=== PATIENT | female | born 1945 | race African-American/Black ===

== ENCOUNTER → 2018-04-08 | Outpatient (CLI) | payer OTHER ==
[~2018-04-08] VITALS: Ht 160 cm; Wt 82.1 kg
[~2018-04-08] MED LIST: ACCUNEB SO1.25 MG/1; AMOXICILLIN 50500 MG PO; ARTIFICIAL TEA1 EACH OPHTHALMIC; BENADRYL25 MG; CLARITIN10 MG PO; CRESTOR10 MG PO; DIPHENHIST50 MG PO; HYDROCORTISO28.35 G1; HYDROXYZINE HCL25 M1 PO; HYDROXYZINE HCL25 M2 PO; LANTUS100 UNIT/M SUBQ; LISINOPRIL20 MG PO; MEDROLDOSEPACK PO; METFORMIN HCL500 MG PO; NEURONTIN 300300 M1 PO; NORCO 5-325 TA1 EACH PO; PREDNISONE 10 M10 MG PO; PROAIR HFA8.5 GM INH; TRAMADOL-ACETA1 EACH; VISTARIL 25 MG25 M1 PO
--- NOTE | ~2018-04-08 | P ---
[facility] [place] [address] PROCEDURE REPORT Name: JONATAN DE LEON DIANNA Room #: REG VOLODYMYR Lopez.#: [id number] Admission: 04/08/18 Attend Phys: Cristo Pack MD Discharge: Date of : 49 Report #: [id number] THIS REPORT FOR: //name// CC: Cristo SINHA DATE OF SERVICE: 04/08/2018 BRIEF HISTORY: The patient is a 72-year-old woman for her first average risk screening colonoscopy. PREOPERATIVE DIAGNOSIS: Average risk screening colonoscopy. POSTOPERATIVE DIAGNOSES: 1. Multiple colon polyps. 2. Moderate sigmoid diverticulosis coli. 3. Internal hemorrhoids. MEDICATIONS: Deep sedation with propofol per anesthesia. SPECIMEN: 1. Polyp, distal transverse colon. 2. Polyp, mid ascending colon. 3. Polyp at 25 cm. ESTIMATED BLOOD LOSS: 3 mL. PROCEDURE: Colonoscopy to cecum and terminal ileum with snare polypectomy and biopsy. FINDINGS: Prior to propofol sedation, procedure of colonoscopy discussed with the patient as well as potential risks and its complications. She indicates she understands and desires to proceed. DESCRIPTION OF PROCEDURE: With the patient in left lateral decubitus position, digital examination was completed which revealed no abnormalities. Subsequently, AppSame video colonoscope was introduced in the rectum, advanced under direct vision to the cecum. The scope was advanced in the cecum. I could see the edge of the ileocecal valve, but unfortunately due to retained liquidy stool material in the cecum, I could not see the appendiceal orifice. As a matter of fact, much of the view of the cecum was obscured by liquidy stool. Unfortunately, there was too much particulate matter and this resulted in repeated clogging of the suction channel of the scope. We could not remove this material. At that point, the scope was slowly withdrawn and careful circumferential views were obtained. There were limitations of prep, mostly in [facility] [address] [place] [address] PROCEDURE REPORT Name: JONATAN DE LEON DIANNA Room #: REG Faustina Lopez.#: [id number] Admission: 04/08/18 Attend Phys: Cristo Pack MD Discharge: Date of : 49 Report #: [id number] the proximal colon, but there were a couple of smaller areas. There are multiple areas of liquidy stools throughout the colon. We could remove much of this, but not all of it could be removed because of particulate material that continued to clog the scope and required irrigation of the channel of the scope. In the mid ascending colon, a flat polyp was seen, it was about 4 x 5 mm, removed by cold snare polypectomy. The scope was further withdrawn and a diminutive polyp was found in the distal transverse colon removed with biopsy forceps. As we withdrew the scope further, she was noted to have moderate to severe sigmoid diverticular disease without endoscopic evidence of diverticulitis. In the mid sigmoid at about 25 cm, a 1.5 cm polyp on a stalk was seen and removed by hot snare polypectomy. There was good hemostasis. There was no bleeding with the polypectomy. Scope was further withdrawn and no additional lesions were seen until the rectum was reached. Examination of the rectum revealed normal mucosa. However, on retroflexion, hemorrhoids were seen. Scope was withdrawn. The patient tolerated procedure well. CONDITION OF THE PATIENT UPON DISCHARGE: Following procedure, the patient drowsy, arousable, conversant and will be discharged home when fully ambulatory. INSTRUCTIONS TO THE PATIENT AND FAMILY AT THE TIME OF DISCHARGE: The patient had what appeared to be an advanced adenoma in the sigmoid colon, a 15 mm polyp was seen and removed by hot snare polypectomy. We will follow up on the pathology. However, due to the significant limitation of the prep, smaller flat lesions could easily have been missed. Therefore, I suggest return in 6 months for a repeat colonoscopy. Would suggest 2-day prep at that time. This is the patient's first colonoscopy. Withdrawal time from the cecum was 20 minutes and 6 seconds. <ELECTRONICALLY SIGNED> By: Cristo Pack MD 04/09/18 1605 0937 17 Cristo Pack MD /nt
== END | disposition home or self-care (01) ==
LOC: GI 06:56
DX: Z12.11 Encounter for screening for malignant neoplasm of colon (principal); D12.2 Benign neoplasm of ascending colon; D12.3 Benign neoplasm of transverse colon; D12.5 Benign neoplasm of sigmoid colon; K64.8 Other hemorrhoids; K57.30 Diverticulosis of large intestine without perforation or abscess without bleeding; I10 Essential (primary) hypertension; E11.9 Type 2 diabetes mellitus without complications; E78.5 Hyperlipidemia, unspecified; J45.909 Unspecified asthma, uncomplicated; F17.210 Nicotine dependence, cigarettes, uncomplicated; Z90.710 Acquired absence of both cervix and uterus; Z90.49 Acquired absence of other specified parts of digestive tract; Z79.4 Long term (current) use of insulin; Z98.890 Other specified postprocedural states; Z88.8 Allergy status to other drugs, medicaments and biological substances; Z79.899 Other long term (current) drug therapy
CPT/HCPCS: 62110; 62900

== ENCOUNTER → 2018-10-10 | Outpatient (CLI) | payer OTHER ==
[~2018-10-10] VITALS: Ht 157.5 cm; Wt 82.6 kg
[~2018-10-10] MED LIST changes: +PRINIVIL40 MG PO
--- NOTE | ~2018-10-10 | PATH ---
[facility] [address] [place] [address] PATHOLOGY RPT PROCEDURE Name: SADIA DE LEON DIANNA Room #: REG VOLODYMYR Lopez.#: [id number] Admission: 10/10/18 Date of : 49 Discharge: Report #: [id number] Path Case #: [id number] [facility] Accession Number: [id number] . 01 Material submitted: . POLYP AT CECUM . 01 Clinical history: . Pre-OP DX: Hx polyps Post-OP DX: Colon polyp . 02 Diagnosis: Polyp, cecum, endoscopic biopsy: - Minute tubular adenoma without high-grade dysplasia. - Lymphoid aggregate as well as hyperplastic changes. (IUV:liquor inspector; 10/11/2018) MBR/10/11/2018 . 02 Electronically signed: . Samra Jackson MD, Pathologist NPI- [id number] . 01 Gross description: . Received in formalin labeled "Donora, Sadia, polyp at cecum," is a single segment of suárez soft tissue measuring 0.4 cm in maximum dimension. The specimen is entirely submitted in cassette A1. (TSD; 10/10/2018) TOB/TOB . 02 Pathologist provided ICD-10: D12.0 . 02 CPT . 069459 Specimen Comment: A courtesy copy of this report has been sent to Specimen Comment: [phone], . Specimen Comment: Report sent to / DR CUELLO Performed at: [address], [place] [id number] MD Lucas So MD Phone: [phone] Performed at: [address] [id number] MD Samra Jackson MD Phone: [phone]
--- NOTE | ~2018-10-10 | P ---
[facility] [place] [address] PROCEDURE REPORT Name: JONATAN DE LEON DIANNA Room #: REG VOLODYMYR Lopez.#: [id number] Admission: 10/10/18 Attend Phys: Cristo Pack MD Discharge: Date of : 47 Report #: [id number] THIS REPORT FOR: //name// CC: Cristo SINHA OUTPATIENT COLONOSCOPY REPORT BRIEF HISTORY: The patient is a 73-year-old woman who has had recent rectal bleeding. She also has a history of colon polyps and a recently removed advanced adenoma from the sigmoid colon. PREOPERATIVE DIAGNOSIS: Rectal bleeding. POSTOPERATIVE DIAGNOSES: 1. Diminutive cecal polyp. 2. Moderate internal hemorrhoids. 3. Moderate sigmoid diverticulosis coli. MEDICATIONS: Deep sedation with propofol per Anesthesia. SPECIMEN: Cecal polyp. ESTIMATED BLOOD LOSS: 3 mL. PROCEDURE: Colonoscopy to cecum and terminal ileum with biopsy. FINDINGS: It is noted that on her last colonoscopy, prep was poor. DESCRIPTION OF PROCEDURE: With the patient in left lateral decubitus position, digital examination was completed, which revealed no abnormalities. Subsequently, the Olympus video colonoscope was introduced into the rectum and advanced under direct vision to the cecum. There was some thick liquidy material scattered about the colon. Fortunately, it was not very adherent and it washed away relatively easily. With extensive washing and irrigation, overall a satisfactory prep was obtained. The scope was advanced into the cecum and ultimately into the terminal ileum, which was inspected and noted to be unremarkable. At that point, the scope was slowly withdrawn and careful circumferential views were obtained. Within the cecum, a diminutive polyp was seen and removed by biopsy. The scope was further withdrawn and after extensive irrigation, the mucosa was within normal limits, normal vascular pattern, normal light reflex. No additional neoplastic or inflammatory lesions were seen. The mucosa throughout the remainder of the colon was normal. In the sigmoid colon, there was a moderately severe sigmoid diverticular disease without endoscopic evidence of diverticulitis. The scope was withdrawn from the rectum. No abnormalities were seen. However, on retroflexion, hemorrhoids were seen, which [facility] [address] [place] [address] PROCEDURE REPORT Name: ANATJONATAN ANN DIANNA Room #: REG VOLODYMYR Lopez.#: [id number] Admission: 10/10/18 Attend Phys: Cristo Pack MD Discharge: Date of : 49 Report #: [id number] is likely the source of her bleeding. The scope was withdrawn. The patient tolerated the procedure well. CONDITION OF THE PATIENT UPON DISCHARGE: Following procedure, the patient was drowsy and arousable. She will be discharged home when fully ambulatory. INSTRUCTIONS TO THE PATIENT AND FAMILY AT THE TIME OF DISCHARGE: Bleeding is likely result of hemorrhoids. She needs hydrocortisone suppositories as needed. Suggest high fiber diet. If she has problems with constipation, MiraLax may be helpful. One small polyp identified today. However, in view of the fact that she did have an advanced adenoma very recently, suggest a followup colon exam in 3 years. <ELECTRONICALLY SIGNED> By: Cristo Pack MD 10/12/18 1553 1146 1718 Cristo Pack MD /nt
== END | disposition home or self-care (01) ==
LOC: GI 08:35
DX: D12.0 Benign neoplasm of cecum (principal); K57.30 Diverticulosis of large intestine without perforation or abscess without bleeding; K64.8 Other hemorrhoids; I10 Essential (primary) hypertension; E11.9 Type 2 diabetes mellitus without complications; E78.5 Hyperlipidemia, unspecified; J45.909 Unspecified asthma, uncomplicated; F17.210 Nicotine dependence, cigarettes, uncomplicated; Z86.010 Personal history of colon polyps; Z79.4 Long term (current) use of insulin; Z90.710 Acquired absence of both cervix and uterus; Z90.49 Acquired absence of other specified parts of digestive tract; Z98.890 Other specified postprocedural states; Z79.899 Other long term (current) drug therapy; Z88.8 Allergy status to other drugs, medicaments and biological substances
CPT/HCPCS: 62110; 62900

== ENCOUNTER → 2018-10-22 | Outpatient (CLI) | payer OTHER | LOC: RAD 14:54 | DX: Z12.31 Encounter for screening mammogram for malignant neoplasm of breast (principal) ==

== ENCOUNTER 2018-11-28 11:21 | Emergency (ER) | payer OTHER ==
[~2018-11-28] VITALS: Ht 157.5 cm; Wt 80.3 kg
[2018-11-28 12:14] LABS: ABSOLUTE NEUTROPHILS 3.6 thou/uL (1.4-8.2); LYMPHOCYTES 36.2 % (24.0-44.0); MCH 27.6 pg (26.0-34.0); MCHC 33.3 g/dL (28.0-37.0); MCV 82.9 fL (80.0-100.0); MONOCYTES 9.8 % (1.0-8.0); RBC 5.43 mil/uL (4.20-5.00); RDW 13.6 % (10.5-14.5); WBC 6.8 thou/uL (4.0-11.0)
[2018-11-28 12:24] LABS: CALCIUM 9.7 mg/dL (8.5-10.1); CREATININE 0.8 mg/dL (0.6-1.0); POTASSIUM 3.8 mmol/L (3.5-5.1)
[2018-11-28 12:40] LABS: ALBUMIN 3.7 g/dL (3.4-5.0); PLATELET COUNT 199 thou/uL (150-400); TOTAL BILIRUBIN 0.3 mg/dL (<0.1-1.0); TOTAL PROTEIN 7.5 g/dL (6.4-8.2)
[2018-11-28] MEDS ORDERED: VENTOLIN HFA 1818 GM INH (13:40)
[2018-11-28] MEDS ORDERED: DOXYCYCLINE 10100 MG PO (13:40)
[2018-11-28] MEDS ORDERED: PREDNISONE 20 M20 MG PO (13:40)
[2018-11-28 14:34] VITALS: BP 122/52
== END 2018-11-28 14:35 | disposition home or self-care (01) ==
LOC: ER 11:21
PROVIDERS: Physician Assistant
DX: J45.901 Unspecified asthma with (acute) exacerbation (principal); I10 Essential (primary) hypertension; E78.5 Hyperlipidemia, unspecified; E11.9 Type 2 diabetes mellitus without complications; F17.210 Nicotine dependence, cigarettes, uncomplicated; Z88.8 Allergy status to other drugs, medicaments and biological substances; Z79.4 Long term (current) use of insulin; Z90.710 Acquired absence of both cervix and uterus; Z90.49 Acquired absence of other specified parts of digestive tract

== ENCOUNTER 2018-12-04 10:15 | Emergency (ER) | payer OTHER ==
[~2018-12-04] VITALS: Ht 157.5 cm; Wt 80.3 kg
[~2018-12-04 10:15] MED LIST changes: +DOXYCYCLINE 10100 MG PO; +PREDNISONE 20 M20 MG PO; +VENTOLIN HFA 1818 GM INH
[2018-12-04 11:24] LABS: HEMATOCRIT 40.7 % (37.0-47.0); HEMOGLOBIN 13.5 gm/dL (12.0-15.0); MCH 27.5 pg (26.0-34.0); MCV 83.3 fL (80.0-100.0); PLATELET COUNT 191 thou/uL (150-400); RBC 4.89 mil/uL (4.20-5.00); RDW 13.6 % (10.5-14.5); WBC 11.2 thou/uL (4.0-11.0)
[2018-12-04 11:37] LABS: ANION GAP 9 mmol/L (7-16); BUN 8 mg/dL (7-18); CHLORIDE 104 mmol/L (98-107); CO2 26 mmol/L (21-32); CREATININE 0.6 mg/dL (0.6-1.0); GLUCOSE 141 mg/dL (74-106); POTASSIUM 3.2 mmol/L (3.5-5.1); SODIUM 139 mmol/L (136-145)
[2018-12-04 11:47] LABS: TROPONIN-I <0.06 ng/mL (<0.06)
[2018-12-04 12:18] LABS: ABSOLUTE NEUTROPHILS 3.9 thou/uL (1.4-8.2); ATYPICAL LYMPHS 4 %
[2018-12-04 12:19] LABS: ANISOCYTOSIS SLIGHT
[2018-12-04] MEDS ORDERED: ALBUTEROL2.5 MG/31 INH (13:46)
[2018-12-04] MEDS ORDERED: DOXYCYCLINE 10100 MG PO (13:46)
[2018-12-04] MEDS ORDERED: TESSALON PERLE100 MG PO (13:46)
[2018-12-04 13:59] VITALS: BP 107/56
--- NOTE | 2018-12-05 07:58 | EKG ---
[place] [address] [facility] [employer] [place] [address] ELECTROCARDIOGRAM REPORT Name: JONATAN DE LEON DIANNA Room #: DEP Tommie#: [id number] Admission: 12/04/18 Attend Phys: Discharge: 12/04/18 Date of : 49 Report #: [id number] THIS REPORT FOR: //name// [facility] ED Test Date: 2018-12-04 Test Time: 10:47:01 Pat Name: JONATAN DE LEON Department: Room: Gender: F Vat Overhauler: BARBARABret : 1945 Requested By: Lalita Pino Order Number: [id number] MD: Cristi Berg Measurements Intervals [place] Rate: 89 P: 51 NH: 139 QRS: 39 QRSD: 76 T: 73 QT: 403 QTc: 491 Interpretive Statements Sinus rhythm Ventricular premature complex Borderline T abnormalities, anterior leads No previous ECG available for comparison Electronically Signed On 12-05-2018 7:57:47 EMBEDDED NURSE by Cristi Berg [email or web address] <ELECTRONICALLY SIGNED> By: Cristi Berg MD 12/05/18 0757 1047 1047 Cristi Berg MD /PATRICIA
== END 2018-12-04 13:52 | disposition home or self-care (01) ==
LOC: ER 10:15
PROVIDERS: Nurse Practitioner Family
DX: J45.901 Unspecified asthma with (acute) exacerbation (principal); E87.6 Hypokalemia; I10 Essential (primary) hypertension; E78.5 Hyperlipidemia, unspecified; E11.9 Type 2 diabetes mellitus without complications; Z90.49 Acquired absence of other specified parts of digestive tract; Z90.710 Acquired absence of both cervix and uterus; F17.210 Nicotine dependence, cigarettes, uncomplicated; Z88.8 Allergy status to other drugs, medicaments and biological substances

== ENCOUNTER 2019-07-10 09:13 | Emergency (ER) | payer OTHER ==
[~2019-07-10] VITALS: Ht 157.5 cm; Wt 78.5 kg
[~2019-07-10 09:13] MED LIST changes: +ALBUTEROL2.5 MG/31 INH; +TESSALON PERLE100 MG PO
[2019-07-10] MEDS ORDERED: PREDNISONE 20 M20 M1 PO (11:13)
[2019-07-10 11:23] VITALS: BP 133/88
== END 2019-07-10 11:23 | disposition home or self-care (01) ==
LOC: ER 09:13
DX: L29.9 Pruritus, unspecified (principal); F17.210 Nicotine dependence, cigarettes, uncomplicated; I10 Essential (primary) hypertension; E78.5 Hyperlipidemia, unspecified; E11.9 Type 2 diabetes mellitus without complications; J45.909 Unspecified asthma, uncomplicated; Z90.710 Acquired absence of both cervix and uterus; Z79.4 Long term (current) use of insulin; Z79.899 Other long term (current) drug therapy

== ENCOUNTER → 2019-10-27 | Outpatient (CLI) | payer OTHER ==
[~2019-10-27] MED LIST changes: +PREDNISONE 20 M20 M1 PO
== END ==
LOC: RAD 08:51
DX: Z12.31 Encounter for screening mammogram for malignant neoplasm of breast (principal)

== ENCOUNTER 2020-06-20 07:48 | Emergency (ER) | payer OTHER ==
[~2020-06-20] VITALS: Ht 157.5 cm; Wt 82.6 kg
[2020-06-20 08:38] LABS: ABSOLUTE NEUTROPHILS 4.2 thou/uL (1.4-8.2); BASOPHILS 0.4 % (0.0-2.0); EOSINOPHILS 3.7 % (0.0-3.0); HEMATOCRIT 41.5 % (37.0-47.0); HEMOGLOBIN 13.7 gm/dL (12.0-15.0); LYMPHOCYTES 41.8 % (24.0-44.0); MCH 27.5 pg (26.0-34.0); MCHC 33.1 g/dL (28.0-37.0); MONOCYTES 7.4 % (1.0-8.0); PLATELET COUNT 205 thou/uL (150-400); POLYS 46.7 % (36.0-66.0); RDW 14.1 % (10.5-14.5)
[2020-06-20 08:44] LABS: CALCIUM 8.9 mg/dL (8.5-10.1); CREATININE 0.8 mg/dL (0.6-1.0); POTASSIUM 4.1 mmol/L (3.5-5.1)
[2020-06-20 09:23] LABS: URINE BILIRUBIN NEGATIVE (Negative); URINE BLOOD NEGATIVE (Negative); URINE CLARITY CLEAR; URINE COLOR YELLOW; URINE GLUCOSE-RANDOM* NEGATIVE (Negative); URINE KETONES NEGATIVE (Negative); URINE LEUKOCYTES-REFLEX NEGATIVE (Negative); URINE NITRITE-REFLEX NEGATIVE (Negative); URINE PROTEIN (DIPSTICK) NEGATIVE (Negative)
[2020-06-20 09:41] VITALS: BP 114/43
== END 2020-06-20 09:41 | disposition home or self-care (01) ==
LOC: ER 07:48
PROVIDERS: Emergency Medicine
DX: E11.65 Type 2 diabetes mellitus with hyperglycemia (principal); I10 Essential (primary) hypertension; J45.909 Unspecified asthma, uncomplicated; E78.5 Hyperlipidemia, unspecified; F17.210 Nicotine dependence, cigarettes, uncomplicated; Z90.710 Acquired absence of both cervix and uterus; Z90.49 Acquired absence of other specified parts of digestive tract; Z79.4 Long term (current) use of insulin; Z79.899 Other long term (current) drug therapy; Z88.8 Allergy status to other drugs, medicaments and biological substances

== ENCOUNTER 2020-06-22 10:06 | Emergency (ER) | payer OTHER ==
[~2020-06-22] VITALS: Ht 157.5 cm; Wt 82.6 kg
[2020-06-22 10:34] VITALS: BP 120/59
[2020-06-22 10:48] LABS: BASOPHILS 0.5 % (0.0-2.0); EOSINOPHILS 4.1 % (0.0-3.0); HEMATOCRIT 42.9 % (37.0-47.0); LYMPHOCYTES 43.6 % (24.0-44.0); MCH 27.2 pg (26.0-34.0); MCHC 32.7 g/dL (28.0-37.0); MCV 83.1 fL (80.0-100.0); MONOCYTES 7.1 % (1.0-8.0); PLATELET COUNT 217 thou/uL (150-400); POLYS 44.7 % (36.0-66.0); RBC 5.16 mil/uL (4.20-5.00); RDW 14.1 % (10.5-14.5)
[2020-06-22 10:49] LABS: URINE BILIRUBIN NEGATIVE (Negative); URINE BLOOD NEGATIVE (Negative); URINE CLARITY CLEAR; URINE COLOR YELLOW; URINE GLUCOSE-RANDOM* NEGATIVE (Negative); URINE KETONES NEGATIVE (Negative); URINE LEUKOCYTES-REFLEX NEGATIVE (Negative); URINE NITRITE-REFLEX NEGATIVE (Negative); URINE PROTEIN (DIPSTICK) NEGATIVE (Negative); URINE SPECIFIC GRAVITY 1.015 (1.005-1.035); URINE UROBILINOGEN 0.2 E.U./dl (0.2-1.0)
[2020-06-22 10:52] LABS: ANION GAP 10 mmol/L (7-16); BUN 10 mg/dL (7-18); CALCIUM 9.1 mg/dL (8.5-10.1); CHLORIDE 104 mmol/L (98-107); CO2 25 mmol/L (21-32); CREATININE 0.8 mg/dL (0.6-1.0); GLUCOSE 165 mg/dL (74-106); POTASSIUM 4.2 mmol/L (3.5-5.1); SODIUM 139 mmol/L (136-145)
[2020-06-22 10:58] LABS: ALBUMIN 3.5 g/dL (3.4-5.0); DIRECT BILIRUBIN < 0.1 mg/dL (<0.1-0.2); SGOT 18 U/L (15-37); SGPT 28 U/L (30-65); TOTAL BILIRUBIN 0.2 mg/dL (0.2-1.0); TOTAL PROTEIN 7.2 g/dL (6.4-8.2)
== END 2020-06-22 11:20 | disposition home or self-care (01) ==
LOC: ER 10:06
PROVIDERS: Emergency Medicine
DX: E11.65 Type 2 diabetes mellitus with hyperglycemia (principal); I10 Essential (primary) hypertension; J45.909 Unspecified asthma, uncomplicated; E78.5 Hyperlipidemia, unspecified; F17.210 Nicotine dependence, cigarettes, uncomplicated; Z90.49 Acquired absence of other specified parts of digestive tract; Z90.710 Acquired absence of both cervix and uterus; Z79.4 Long term (current) use of insulin; Z79.899 Other long term (current) drug therapy; Z88.8 Allergy status to other drugs, medicaments and biological substances

== ENCOUNTER → 2020-11-16 | Outpatient (CLI) | payer OTHER | LOC: BC 08:13 | PROVIDERS: ATTEND Nurse Practitioner | DX: Z12.31 Encounter for screening mammogram for malignant neoplasm of breast (principal) ==

== ENCOUNTER 2021-02-02 10:04 | Emergency (ER) | payer OTHER ==
[~2021-02-02] VITALS: Ht 157.5 cm; Wt 81.7 kg
[2021-02-02] MEDS ORDERED: MEDROLDOSEPACK PO (10:55)
[2021-02-02 11:06] VITALS: BP 121/69
== END 2021-02-02 11:06 | disposition home or self-care (01) ==
LOC: ER 10:04
DX: T78.40XA Allergy, unspecified, initial encounter (principal); I10 Essential (primary) hypertension; E78.5 Hyperlipidemia, unspecified; E11.9 Type 2 diabetes mellitus without complications; J45.909 Unspecified asthma, uncomplicated; F17.210 Nicotine dependence, cigarettes, uncomplicated; Z90.710 Acquired absence of both cervix and uterus; Z90.49 Acquired absence of other specified parts of digestive tract; Z79.4 Long term (current) use of insulin; Z79.899 Other long term (current) drug therapy; Z88.8 Allergy status to other drugs, medicaments and biological substances; Y92.89 Other specified places as the place of occurrence of the external cause

== ENCOUNTER 2021-05-31 11:48 | Emergency (ER) | payer OTHER ==
[~2021-05-31] VITALS: Ht 157.5 cm; Wt 81.7 kg
[2021-05-31 11:48] VITALS: BP 150/81
[2021-05-31] MEDS ORDERED: MEDROLDOSEPACK PO (12:23)
== END 2021-05-31 12:23 | disposition home or self-care (01) ==
LOC: ER 11:48
DX: R21 Rash and other nonspecific skin eruption (principal); I10 Essential (primary) hypertension; E11.9 Type 2 diabetes mellitus without complications; J45.909 Unspecified asthma, uncomplicated; E78.5 Hyperlipidemia, unspecified; F17.210 Nicotine dependence, cigarettes, uncomplicated; Z90.710 Acquired absence of both cervix and uterus; Z90.49 Acquired absence of other specified parts of digestive tract; Z79.4 Long term (current) use of insulin; Z79.899 Other long term (current) drug therapy; Z88.6 Allergy status to analgesic agent

== ENCOUNTER → 2021-08-04 | Outpatient (CLI) | payer OTHER | LOC: CAT 13:34 | PROVIDERS: ATTEND Nurse Practitioner | DX: Z12.2 Encounter for screening for malignant neoplasm of respiratory organs (principal); R91.8 Other nonspecific abnormal finding of lung field; Z87.891 Personal history of nicotine dependence ==

== ENCOUNTER → 2022-01-03 | Outpatient (CLI) | payer OTHER ==
[~2022-01-03] MED LIST changes: +DIAZEPAM 5 MG5 M1 PO; +GLIMEPIRIDE4 MG PO; +METHIMAZOLE5 MG PO; +TRULICITY4.5 MG/0.5 SUBQ
== END ==
LOC: LAB 08:38
PROVIDERS: ATTEND Student in an Organized Health Care Education/Training Program
DX: Z20.822 Contact with and (suspected) exposure to COVID-19 (principal)

== ENCOUNTER → 2022-01-04 | Outpatient (CLI) | payer OTHER ==
[~2022-01-04] VITALS: Ht 160 cm; Wt 83.0 kg
--- NOTE | 2022-01-04 12:57 | P ---
[facility] [place] [address] PROCEDURE REPORT Name: JONATAN DE LEON Room #: REG VOLODYMYR Reilly#: [id number] Admission: 01/04/22 Attend Phys: Mckinley Siddiqui Discharge: Date of : 49 Report #: [id number] THIS REPORT FOR: cc: FAM - Family physician unknown FAM - Family physician unknown Mckinley Gray MD ~ DATE OF SERVICE: 01/04/2022 PROCEDURE PERFORMED: Colonoscopy with biopsies. HISTORY OF PRESENT ILLNESS: The patient is a 76-year-old female with a history of colon polyps, here for routine followup. She denies any symptoms in general. No family history of colon cancer. DESCRIPTION OF PROCEDURE: The risks and benefits of the procedure were explained to the patient, those risks including but not limited to bleeding, perforation and the risk of sedation. She understood these risks and gave informed consent. Sedation was given using propofol per anesthesia. Next, a digital rectal exam was initially performed, which was normal. Next, using a standard Olympus colonoscope, the scope was placed in the patient's anus and advanced under direct vision to the cecum. The overall prep was good. The cecum and ileocecal valve were normal in appearance. The ascending colon was normal. In the transverse colon, a 4 mm sessile polyp was noted and removed with cold forceps, otherwise normal. Descending colon was normal. A few scattered diverticula were noted in the sigmoid colon. No evidence of inflammation, otherwise normal. The rectal mucosa was normal. On retroflexion, small nonbleeding internal hemorrhoids were noted. The scope was then withdrawn and the procedure terminated. The patient tolerated the procedure well. IMPRESSION: 1. Small colonic polyp. 2. Sigmoid diverticulosis. 3. Small internal hemorrhoids. 4. Otherwise, normal colonoscopy. RECOMMENDATIONS: 1. Await biopsy results. 2. Repeat colonoscopy in 5 years. Thank you for allowing me to participate in her care. <ELECTRONICALLY SIGNED> By: Mckinley Gray MD 01/04/22 1257 0850 1145 Mckinley Gray MD /nt
--- NOTE | 2022-01-06 13:08 | PATH ---
[facility] [address] [place] [address] PATHOLOGY RPT PROCEDURE Name: SADIA DE LEON Room #: REG [facility] MTriny.#: [id number] Admission: 01/04/22 Date of : 49 Discharge: Report #: [id number] Path Case #: [id number] [facility] Accession Number: [id number] . 01 Material submitted: . colon - TRANSVERSE COLON POLYP. Modifiers: transverse . 01 Clinical history: . COLONOSCOPY HX OF POLYP, SCREENING DIVERTICULOSIS . 02 Diagnosis: Transverse colon polyp, polypectomy: - Tubular adenoma. - Negative for high-grade dysplasia or malignancy. (ANK:dee; 01/06/2022) MBR 01/06/2022 1053 Local . 02 Electronically signed: . Lizzette Youngblood MD, Pathologist NPI- [id number] . 01 Gross description: . The specimen is received in formalin, labeled "Sadia Blair, transverse colon polyp". Received are multiple suárez-umaña, soft tissue fragments, ranging in size from 0.2-0.4 cm, in greatest dimension. The specimen is entirely submitted cassette A1. (JGG; 01/05/2022) JGG/JGG 01/05/2022 1035 Local . 02 Pathologist provided ICD-10: D12.3 . 02 CPT . 248341 Specimen Comment: A courtesy copy of this report has been sent to [phone] Specimen Comment: [phone] Specimen Comment: Report sent to / DR CUELLO Performed at: [address], [place] [id number] MD Ean Chahal MD Phone: [phone] Performed at: [address] [id number] [address] [address] PATHOLOGY RPT PROCEDURE Name: SADIA DE LEON DIANNA Room #: REG CLFaustina Arizmendi.R.#: [id number] Admission: 01/04/22 Date of : 49 Discharge: Report #: [id number] Path Case #: [id number] MD Lizzette Youngblood MD Phone: [phone]
== END | disposition home or self-care (01) ==
LOC: GI 07:16
PROVIDERS: ATTEND Specialist
DX: Z12.11 Encounter for screening for malignant neoplasm of colon (principal); Z86.010 Personal history of colon polyps; K63.5 Polyp of colon; K57.30 Diverticulosis of large intestine without perforation or abscess without bleeding; K64.8 Other hemorrhoids; I10 Essential (primary) hypertension; E78.5 Hyperlipidemia, unspecified; F32.9 Major depressive disorder, single episode, unspecified; J45.909 Unspecified asthma, uncomplicated; F41.9 Anxiety disorder, unspecified; F17.210 Nicotine dependence, cigarettes, uncomplicated; E11.9 Type 2 diabetes mellitus without complications; E05.90 Thyrotoxicosis, unspecified without thyrotoxic crisis or storm; Z98.890 Other specified postprocedural states; Z79.899 Other long term (current) drug therapy; Z90.49 Acquired absence of other specified parts of digestive tract; Z90.710 Acquired absence of both cervix and uterus; Z79.4 Long term (current) use of insulin
CPT/HCPCS: 62110; 62900